=== PATIENT | male | born 1945 | race Hispanic/Latino ===

== ENCOUNTER 2017-03-18 07:57 | Observation (INO) | payer MEDICARE, OTHER ==
[2017-03-18 08:03] VITALS: BMI 27.3
[2017-03-18 08:45] LABS: ADD MANUAL DIFF? NO
[2017-03-18 08:50] LABS: BASO # 0.01 K/mm3 (0.0-2.0); BASO % 0.1 % (0.0-3.0); EOS # 0.4 (0.0-0.7); EOS % 4.2 % (1.5-5.0); GRAN # 6.38 (1.4-6.5); GRAN % 72.9 % (50.0-68.0); HEMATOCRIT 32.8 % (42.0-52.0); LYMPH % 11.4 % (22.0-35.0); MEAN CELL VOLUME 96.2 fL (80.0-105.0); MEAN CORPUSCULAR HGB CONC 33.2 g/dl (31.0-37.0); MEAN PLATELET VOLUME 10.3 fl (7.0-11.0); MONO % 11.4 % (1.0-6.0); PLATELET COUNT 251 10^3/uL (120.0-450.0); RED CELL DISTRIBUTION WIDTH 14.6 % (11.5-14.5); WHITE BLOOD COUNT 8.8 10^3/ul (4.5-11.0)
[2017-03-18 09:00] LABS: INR 1.06 (0.93-1.08)
[2017-03-18 09:05] LABS: ALB/GLOB RATIO 1.1 (1.1-1.8); BILIRUBIN,TOTAL 0.9 mg/dL (0.2-1.3); CALCIUM 9.8 mg/dL (8.4-10.5); MAGNESIUM 1.9 mg/dL (1.7-2.2); PHOSPHOROUS 3.7 mg/dL (2.5-4.5); POTASSIUM 3.2 mmol/L (3.6-5.0); TOTAL PROTEIN 6.6 g/dL (5.8-8.3)
[2017-03-18] MEDS ORDERED: Potassium Chloride 20 mEq ER Tab PO STA (09:14)
--- NOTE | 2017-03-18 09:14 | CT ---
PROCEDURE: CT HEAD WITHOUT CONTRAST. HISTORY: altered mental status COMPARISON: None available. TECHNIQUE: Axial computed tomography images were obtained through the head/brain without intravenous contrast. Radiation dose: Total exam DLP = 822 mGy-cm. This CT exam was performed using one or more of the following dose reduction techniques: Automated exposure control, adjustment of the mA and/or kV according to patient size, and/or use of iterative reconstruction technique. FINDINGS: HEMORRHAGE: No intracranial hemorrhage. BRAIN: No mass effect or edema. No atrophy or chronic microvascular ischemic changes. VENTRICLES: Unremarkable. No hydrocephalus. CALVARIUM: Unremarkable. PARANASAL SINUSES: Unremarkable as visualized. No significant inflammatory changes. MASTOID AIR CELLS: Unremarkable as visualized. No inflammatory changes. OTHER FINDINGS: None. IMPRESSION: Normal CT of the Head.
[2017-03-18 09:15] LABS: TROPONIN I 0.02 ng/mL
--- NOTE | 2017-03-18 09:26 | ED PDOC ---
Arrival/HPI - General Chief Complaint: Weakness/Neurological Deficit Time Seen by Provider: 03/18/17 08:06 Historian: Spouse EM Caveat: Acuity of Condition - History of Present Illness Narrative History of Present Illness (Text): 03/18/17 08:10 A 72 year old male, whose past medical history includes CHF, COPD, NSTEMI with stents, hyperlipidemia, hypertension, renal failure, chronic back pain and on CPAP, presents to the emergency department, accompanied by . Patient states the patient was started on new medication for his back pain on 03/14/17, which she believes may be the cause of the patient symptoms. She states last night the patient began to twitch through his lower extremities and body. She notes twitch is intermittent. reports this morning the patient was walking and suddenly lean over and held onto her as though he was weak and the twitching increased. Patient then had two episodes of vomiting, so they became concerned and decided to come to the emergency department for evaluation. denies any fever, cough, or other complaints at this time. PMD: Dr. Pacheco Time/Duration: Other (12-18 hours) Symptom Onset: Sudden Symptom Course: Intermittent Quality: Other Activities at Onset: Rest Context: Home Past Medical History - Provider Review Nursing Documentation Reviewed: Yes - Infectious Disease Hx of Infectious Diseases: None - Cardiac Hx Cardiac Disorders: Yes Hx Hypertension: Yes Hx Pacemaker: No - Pulmonary Hx Respiratory Disorders: Yes Hx Chronic Obstructive Pulmonary Disease (COPD): Yes Hx Sleep Apnea: Yes (uses cpap) - Neurological Hx Neurological Disorder: No Hx Paralysis: No - HEENT Hx HEENT Disorder: No - Renal Hx Renal Disorder: No - Endocrine/Metabolic Hx Endocrine Disorders: No - Hematological/Oncological Hx Blood Disorders: No Hx Blood Transfusions: No Hx Blood Transfusion Reaction: No - Integumentary Hx Dermatological Disorder: No - Musculoskeletal/Rheumatological Hx Musculoskeletal Disorders: Yes - Gastrointestinal Hx Gastrointestinal Disorders: No - Genitourinary/Gynecological Hx Genitourinary Disorders: No - Psychiatric Hx Psychophysiologic Disorder: No Hx Emotional Abuse: No Hx Physical Abuse: No Hx Substance Use: No - Surgical History Hx Cardiac Catheterization: Yes Hx Coronary Stent: Yes - Anesthesia Hx Anesthesia Reactions: No Hx Malignant Hyperthermia: No - Suicidal Assessment Feels Threatened In Home Enviroment: No Family/Social History Family/Social History: Unknown Family HX Smoking Status: Former Smoker Hx Alcohol Use: No Hx Substance Use: No Allergies/Home Meds Allergies/Adverse Reactions: Allergies ticlopidine HCl [From Ticlid] Allergy (Intermediate, Verified 03/18/17 08:06) RASH Home Medications: Home Meds Medication Instructions Recorded Confirmed ALPRAZolam [Xanax] 0.5 mg PO TID 07/03/15 03/18/17 Risperidone [Risperidone Odt 0.25 mg PO HS 07/03/15 03/18/17 0.25MG] Nebivolol [Bystolic] 5 mg PO DAILY 09/03/16 03/18/17 Furosemide [Lasix] 20 mg PO DAILY 09/05/16 03/18/17 Ticagrelor [Brilinta] 90 mg PO BID 09/05/16 03/18/17 Aspirin [Adult Low Dose Aspirin EC] 81 mg PO DAILY 09/19/16 03/18/17 Atorvastatin [Lipitor] 40 mg PO QPM 09/19/16 03/18/17 DULoxetine [Cymbalta] 60 mg PO DAILY 09/19/16 03/18/17 Pantoprazole Sodium [Protonix] 40 mg PO QAM 09/19/16 03/18/17 Docusate [Colace] 100 mg PO DAILY PRN 10/12/16 03/18/17 Albuterol Sulfate [Proair Hfa] 1 inh INH PRN PRN 03/18/17 03/18/17 Albuterol Sulfate [Proair 1 inh INH DAILY 03/18/17 03/18/17 Respiclick] Baclofen [Lioresal] 20 mg PO Q8 03/18/17 03/18/17 Cholecalciferol (Vitamin D3) 1 tab PO DAILY 03/18/17 03/18/17 [Vitamin D3] Modafinil [Provigil] 200 mg PO DAILY 03/18/17 03/18/17 Ranolazine [Ranexa] 500 mg PO BID 03/18/17 03/18/17 Review of Systems - Physician Review All systems were reviewed & negative as marked: Yes - Review of Systems Constitutional: Fatigue. absent: Fevers Respiratory: absent: Cough Gastrointestinal: Vomiting Musculoskeletal: Other (twitching) Physical Exam Vital Signs Reviewed: Yes Vital Signs Temp Pulse Resp BP Pulse Ox 03/18/17 11:42 68 17 123/66 100 03/18/17 08:00 97.7 F 67 18 152/86 H 100 Temperature: Afebrile Blood Pressure: Hypertensive Pulse: Regular Respiratory Rate: Normal Appearance: Positive for: Well-Appearing, Non-Toxic, Comfortable Pain Distress: None Mental Status: Positive for: other (Alert and oriented x 2; drowsy ( states this is not baseline for the patient)). No: Confused, Agitated, Lethargic, Comatose Finger Stick Blood Glucose: 122 - Systems Exam Head: Present: Atraumatic, Normocephalic Pupils: Present: PERRL Extroacular Muscles: Present: EOMI Conjunctiva: Present: Normal Mouth: Present: Moist Mucous Membranes Neck: Present: Normal Range of Motion Respiratory/Chest: Present: Clear to Auscultation, Good Air Exchange. No: Respiratory Distress, Accessory Muscle Use Cardiovascular: Present: Regular Rate and Rhythm, Normal S1, S2. No: Murmurs Abdomen: Present: Normal Bowel Sounds. No: Tenderness, Distention, Peritoneal Signs Back: Present: Normal Inspection Upper Extremity: Present: Normal Inspection. No: Cyanosis, Edema Lower Extremity: Present: Normal Inspection. No: Edema Neurological: Present: GCS=15, CN II-XII Intact, Speech Normal, Motor Func Grossly Intact, Normal Sensory Function Skin: Present: Warm, Dry, Normal Color. No: Rashes Psychiatric: Present: Alert, Other (drowsy). No: Oriented x 3 Medical Decision Making ED Course and Treatment: 03/18/17 08:10 Impression: A 72 year old male with alter mental status. Differential Diagnosis include but are not limited to: AMS secondary to medication reaction vs. electrolyte imbalance vs. intracranial hemorrhage vs. infection etiology Plan: -- EKG -- Head CT -- Chest X-ray -- Labs -- Urinalysis -- Reassess and disposition Prior Visits: Notes and results from previous visits were reviewed. The patient last presented to the emergency department on 09/19/16 for evaluation of fatigue and shortness of breath. Progress Notes: EKG: Ordered, reviewed, and independently interpreted the EKG. Rate : 65 BPM Rhythm : NSR Interpretation : No ST-segment elevations or depressions, no T-wave inversions, normal intervals. Comparison : No change from previous EKG for comparison. 03/18/17 09:14 Patient Potassium is 3.2, will give K-Dur. 03/18/17 09:[address]: Creator : Bossman Vaz MD COMPARISON: None available. FINDINGS: HEMORRHAGE: No intracranial hemorrhage. BRAIN: No mass effect or edema. No atrophy or chronic microvascular ischemic changes. VENTRICLES: Unremarkable. No hydrocephalus. CALVARIUM: Unremarkable. PARANASAL SINUSES: Unremarkable as visualized. No significant inflammatory changes. MASTOID AIR CELLS: Unremarkable as visualized. No inflammatory changes. OTHER FINDINGS: None. IMPRESSION: Normal CT of the Head. 03/18/17 10:34 Urinalysis reviewed and negative. Potassium replaced. CT Head negative. Case discussed with Dr. Pacheco, who is aware and agrees with the plan to place the patient in Med/Surg for observation for weakness and hypokalemia. I have discussed the results and plan with the patient's , who expresses understanding. Patient's given the opportunity to ask question, all questions were answered and there is agreement with the plan to be admitted to the hospital. 03/18/17 11:44 Chest X-ray: Creator : Bossman Vaz MD COMPARISON: None available. FINDINGS: LUNGS: Clear. PLEURA: No pneumothorax or pleural fluid seen. CARDIOVASCULAR: Normal. OSSEOUS STRUCTURES: No significant abnormalities. VISUALIZED UPPER ABDOMEN: Normal. OTHER FINDINGS: None. IMPRESSION: No active disease. - Lab Interpretations Lab Results: 03/18/17 08:40 03/18/17 08:40 Lab Results 03/18/17 08:40: Sodium 146, Potassium 3.2 L, Chloride 109 H, Carbon Dioxide 29, Anion Gap 11, BUN 19, Creatinine 1.5 H, Est GFR ( Amer) 56, Est GFR (Non- Af Amer) 46, Random Glucose 116 H, Calcium 9.8, Phosphorus 3.7, Magnesium 1.9, Total Bilirubin 0.9, AST 37, ALT 45, Alkaline Phosphatase 74, Lactate Dehydrogenase 284 L, Total Creatine Kinase 32 L, Troponin I 0.02 D, Total Protein 6.6, Albumin 3.5, Globulin 3.1, Albumin/Globulin Ratio 1.1 03/18/17 08:40: PT 11.5, INR 1.06, APTT 25.0 03/18/17 08:40: WBC 8.8, RBC 3.41 L, Hgb 10.9 L, Hct 32.8 L, MCV 96.2, MCH 32.0 , MCHC 33.2, RDW 14.6 H, Plt Count 251, MPV 10.3, Gran % 72.9 H, Lymph % (Auto) 11.4 L, [place] % (Auto) 11.4 H, Eos % (Auto) 4.2, Baso % (Auto) 0.1, Gran # 6.38, Lymph # 1.0 L, [place] # 1.0 H, Eos # 0.4, Baso # 0.01 I have reviewed the lab results: Yes - RAD Interpretation Radiology Orders: 03/18/17 08:19 HEAD W/O CONTRAST [CT] Stat 03/18/17 09:15 CXR [CHEST PORTABLE] [RAD] Stat - Medication Orders Current Medication Orders: Acetaminophen (Tylenol 325mg Tab) 650 mg PO Q4H PRN PRN Reason: Pain, Mild (1-3) Ondansetron HCl (Zofran Inj) 4 mg IVP Q4H PRN PRN Reason: Nausea/Vomiting Discontinued Medications Potassium Chloride (K-Dur 20 Meq Er Tab) 40 meq PO STAT STA Stop: 03/18/17 09:15 Last Admin: 03/18/17 09:33 Dose: 40 meq - Scribe Statement The provider has reviewed the documentation as recorded by the Leann Ariza Provider Joseibe Attestation: All medical record entries made by the Leann were at my direction and personally dictated by me. I have reviewed the chart and agree that the record accurately reflects my personal performance of the history, physical exam, medical decision making, and the department course for this patient. I have also personally directed, reviewed, and agree with the discharge instructions and disposition. Disposition/Present on Arrival - Present on Arrival Any Indicators Present on Arrival: No History of DVT/PE: No History of Uncontrolled Diabetes: No Urinary Catheter: No History of Decub. Ulcer: No History Surgical Site Infection Following: None - Disposition Have Diagnosis and Disposition been Completed?: Yes Diagnosis: Weakness, Hypokalemia Disposition: HOSPITALIZED Disposition Time: 10:34 Patient Plan: Observation Condition: FAIR
--- NOTE | 2017-03-18 11:42 | RAD ---
PROCEDURE: CHEST RADIOGRAPH, 1 VIEW HISTORY: altered mental status COMPARISON: None available. FINDINGS: LUNGS: Clear. PLEURA: No pneumothorax or pleural fluid seen. CARDIOVASCULAR: Normal. OSSEOUS STRUCTURES: No significant abnormalities. VISUALIZED UPPER ABDOMEN: Normal. OTHER FINDINGS: None. IMPRESSION: No active disease.
[2017-03-18 12:12] LABS: URINE BILIRUBIN NEGATIVE (NEGATIVE); URINE BLOOD NEGATIVE (NEGATIVE); URINE GLUCOSE (UA) NEGATIVE (NEGATIVE); URINE KETONE NEGATIVE (NEGATIVE); URINE LEUKOCYTE ESTERASE NEGATIVE Leu/uL (NEGATIVE); URINE PROTEIN TRACE mg/dL (<30 mg/dL); URINE UROBILINOGEN 0.2 E.U./dL (<1 E.U./dL)
[2017-03-18 12:13] LABS: URINE APPEARANCE CLEAR (CLEAR); URINE COLOR YELLOW (YELLOW)
[2017-03-18 12:22] LABS: URINE BACTERIA FEW (NEG); URINE EPITHELIAL CELLS 0 - 2 /hpf (0-5); URINE RBC 0 - 2 /hpf (0-2); URINE WBC 0 - 2 /hpf (0-6)
[2017-03-18 14:07] VITALS: RESP 18
[2017-03-18] MEDS ORDERED: Albuterol HFA 90 mcg/actuation (8 g) INH PRN ×2 (14:59→15:41)
[2017-03-18] MEDS ORDERED: Albuterol 0.083% Inhal Sol (2.5 mg/3 mL) UD IH PRN (17:09)
--- NOTE | 2017-03-18 17:24 | CON ---
DATE: 03/18/2017 CHIEF COMPLAINT: Altered mental status. HISTORY OF PRESENT ILLNESS: A 72-year-old man with history of COPD, congestive heart failure and non -STEMI with stents, hyperlipidemia, hypertension, renal failure, chronic back pain on Cymbalta, histo ry of fusion of the lumbar area, history of sleep apnea on CPAP, history of being on modafinil for fa tigue throughout the day. He came to the hospital because the noted that he was placed baclofen on 03/14/2017 and he started becoming more dizzy with tremulous activity of the extremities, but no s eizure-like activity noticed. Currently, he is in deep sleep, is slightly lethargic, but responsive localized noxious stimulus. He follows simple commands. CT head showed no acute intracranial abnorm alities. His electrolyte ____ his potassium 3.2, chloride 109, blood pressure is otherwise stable. PAST MEDICAL HISTORY: History of CHF, COPD N-STEMI with stents, hyperlipidemia, hypertension, chroni c back pain with chronic fusion in the lower lumbar area, history of renal failure, history of obstru ctive sleep apnea on CPAP, history of fatigue on modafinil. REVIEW OF SYSTEMS: A 14-point review of systems negative except that in the HPI. HOME MEDICATIONS: Reviewed via nurses reconciliation sheet. ALLERGIES: TICLOPIDINE. FAMILY HISTORY: Noncontributory. SOCIAL HISTORY: No illicit drug use, smoking, or ETOH abuse. PHYSICAL EXAMINATION: VITAL SIGNS: Temperature 97.7, pulse rate 68, blood pressure 123/66, respiratory rate 17, oxygen 100 % on room air. GENERAL: The patient is sitting up in bed in no acute distress. HEENT: Atraumatic, normocephalic. PERRLA. Extraocular muscles intact. NECK: Supple, no JVD, no adenopathy noted. LUNGS: Clear to auscultation. No adventitious sounds. HEART: S1, S2, normal rate and rhythm. No murmurs, rubs, or gallops. ABDOMEN: Soft, nontender, nondistended. Bowel sounds are present. EXTREMITIES: No clubbing, no cyanosis. Peripheral pulses 2+ bilaterally. NEUROLOGIC: The patient is alert, drowsy, no acute distress. Speech is fluent, without any errors. Cranial nerves II through XII are intact. MOTOR: Moves all extremities equally. Toes downgoing bilaterally. SENSORY: Withdraws to localized noxious stimulus. Light touch is intact. Proprioception is intact. DTRs are 2+ throughout and 1 at the knees and ankles. COORDINATION: [id number] intact. GAIT: Deferred for now. No tremulous activity noted. LABORATORIES: Sodium is 146, potassium 3.2, chloride 109, carbon dioxide 29, BUN of 119, creatinine 1.5, random glucose of 111. ASSESSMENT AND PLAN: This is a 72-year-old man with past medical history of congestive heart failure , chronic obstructive pulmonary disease, non-ST elevation myocardial infarction with stents, hyperlip idemia, hypertension, history of renal failure, history of chronic back pain with fusion of the lumbo sacral spine on Cymbalta and obstructive sleep apnea on CPAP. He came to the Emergency Department be cause he was becoming more lethargic after starting baclofen and having some generalized weakness and twitching, but no bowel or bladder incontinence, no history of seizures. Currently, there is no sei zure-like activity. He is slightly lethargic, but does take modafinil throughout the day to keep him stimulated and awake. I feel like his overall change in mental status is likely secondary to polyph armacy given that he was on baclofen and he is also on Cymbalta as it is in the morning as well as Xa nax. I recommend: 1. Avoid any sedating medications. 2. Stop baclofen completely and can make sure he takes his Cymbalta only at night at least 60 mg p.o . at bedtime, can reduce to 30 mg p.o. at bedtime if needed. 3. Continue with modafinil 200 mg p.o. daily during in the morning to keep him up during the day. 4. Monitor electrolytes and correct his metabolic derangements. 5. Continue with aspirin 81 mg and Lipitor 40 mg for stroke prevention. At this time, he is clinically stable. CT head is negative. Adjust his sedating medications. Thank you for this consult. Robert Sebastian MD cc: [phone] TT: 03/18/2017 17:24:06 Confirmation # [id number] Dictation # [id number] jn
[2017-03-18 17:28] LABS: ARTERIAL BLOOD GAS HCO3 24.7 mmol/L (21-28); ARTERIAL BLOOD GAS O2 CAPACITY 13.8 mL/dl (16-24); ARTERIAL BLOOD GAS O2 CONTENT 13.7 ML/dl (15-23); ARTERIAL BLOOD GAS PH 7.47 (7.35-7.45); ARTERIAL BLOOD HGB O2 SAT 95.7 % (95.0-98.0); CARBOXYHEMOGLOBIN 2.3 % (0.5-1.5); HHB 0.8 % (0-5); METHEMOGLOBIN 1.1 % (0.0-3.0)
[2017-03-18] MEDS: Dextrose 5%/0.45% NS 1,000 ML IV SCH (17:44)
--- NOTE | 2017-03-18 18:50 | CARD ---
APPROVED REPORT EKG Measurement Heart [id number] MI [id number] <Conclusion> Normal sinus rhythm Possible Left atrial enlargement Possible Anterior infarct, age undetermined Abnormal ECG
[2017-03-18] MEDS ORDERED: RISPERIDONE 0.25 MG PO SCH (22:00)
[2017-03-19] MEDS: Dextrose 5%/0.45% NS 1,000 ML IV SCH ×2 (05:17→09:43)
[2017-03-19 09:06] VITALS: BP 158/94; PULSE 72; TEMP 98.8; O2SAT 98
[2017-03-19] MEDS ORDERED: CHOLECALCIFEROL PO SCH (10:00)
[2017-03-19] MEDS ORDERED: Pantoprazole 40 mg EC Tab PO SCH (10:00)
[2017-03-19] MEDS ORDERED: Non Formulary Medication (Cholecalciferol (Vitamin D3) [Vitamin D3] 1 TAB) PO SCH (10:00)
[2017-03-19] MEDS ORDERED: NEBIVOLOL 5 MG PO SCH (10:00)
--- NOTE | 2017-03-19 13:24 | HP ---
The patient is a 72-year-old white male with a history of recent ____ myocardial infarction status po st stent, history of COPD, hypertension, CAD, severe neck and back pain. The patient was recently st arted on baclofen. He has been on antidepressants in the past and also Xanax in the past for his anx iety and depression. HE HAD A REACTION TO BACLOFEN AND BECAME LETHARGIC, CONFUSED AND DISORIENTED, c nabeel to the hospital. CT was negative. LABORATORY DATA: Unremarkable except for a slightly decrease in potassium, otherwise unremarkable. Over with hydration and time, his mental status cleared in the course of approximately 24 hours. He is stable. He is awake, alert, and oriented x 3. Most likely, he will be discharged home today. PHYSICAL EXAMINATION: GENERAL: Shows a well-developed, slightly ____. HEART: ____ murmurs. CHEST: Clear to auscultation and percussion. ABDOMEN: Obese, but benign. EXTREMITIES: Without cyanosis, clubbing, or edema. BACK: The patient has a lumbosacral scar from his recent laminectomy. He also has decreased range o f motion of the cervical spine and tenderness on palpation of the paracervical spinal muscles. NEUROLOGIC: The patient is alert and oriented x 3. Grossly intact. IMPRESSION: Medication reaction with lethargy, polypharmacy with Xanax and Cymbalta. PLAN: Is to allow the patient to be discharged home when he is completely clear, and to follow up as an outpatient. Aldair Pacheco MD cc: [id number] TT: 03/19/2017 11:58:17 stella
--- NOTE | 2017-03-19 20:15 | CON ---
DATE: 03/19/2017 The patient is in room 576, bed 2. REASON FOR CONSULTATION: Coronary artery disease, hypertension, hyperlipidemia, lethargic and confus ed. HISTORY OF PRESENT ILLNESS: The patient is a 72-year-old male who is known to have severe neck and b ack pain, has been on antidepressant and he was also started on baclofen after taking which he starte d becoming lethargic, confused, disoriented, also was dizzy and has tremulous activity of the extremi ties. The patient known case of coronary artery disease status post stents in LAD, RCA. The patient denies any chest pain, shortness of breath, or palpitation. PAST MEDICAL HISTORY: Positive for COPD, hypertension, hyperlipidemia, diabetes, chronic back and ch ronic cervical pain, sleep apnea on BiPAP, status post back surgery, resistance to Plavix with high P RU value, had been on Brilinta. Previous cardiac history: patient has history of stent insertion in the past, and patient on 08/30/2016 had an acute infarction with anterior wall myocardial infarction and underwent angioplasty, stent insertion of the LAD. It happened the patient stopped Plavix and t here was subacute closure of a stent in LAD because patient's Plavix was held for back surgery. Foll owing that the patient had staged PTCA with stenting of proximal RCA, distal RCA and continued to RPD A. On that catheterization the patient's ejection fraction 25%-30%. The patient had followup MUGA s can 11/30/2016 which showed ejection fraction of 50%. The patient was found to be resistant to the Pl avix with high PRU value, so he was ill put on Brilinta. PERSONAL HISTORY: Denies smoking. Denies a history of alcohol abuse. MEDICATIONS: The patient has been on Brilinta 90 mg twice daily, Cymbalta, Lipitor, Xanax and also p atient was put on recently baclofen. ALLERGIES: RESISTANT PLAVIX WITH HIGH PRU AND THE PATIENT ALSO ALLERGIC TO TICLOPIDINE. REVIEW OF SYSTEMS: All the systems were reviewed, positive mentioned in the history, others were neg ative. PHYSICAL EXAMINATION: VITAL SIGNS: Blood pressure 158/94, respirations 18. Yesterday, blood pressure 123/66, pulse 72, te mperature 98.8. HEENT: Head is normocephalic. Eyes: Pupils normal. Conjunctivae slightly pale. NECK: JVP low. Carotid equal. THORAX: AP diameter normal. LUNGS: Clear. CARDIOVASCULAR: S1, S2. ABDOMEN: Soft, nontender, no organomegaly. Bowel sounds normal. EXTREMITIES: No clubbing, no cyanosis. LABORATORY DATA: WBC 8.8, hemoglobin 10.9, hematocrit 32.8, platelet 251. Sodium 146, potassium on admission 3.2, BUN 19, creatinine 1.5, random sugar 116. Calcium, phosphorus, magnesium was normal, troponin 0.02. Total protein 6.6, albumin 3.5. CT of the head was normal. EKG showed normal sinus rhythm, possible left atrial enlargement, possible old anterior infarct. Chest x-ray: No active dis ease. DIAGNOSES: Lethargic, confused, disoriented, probably related to baclofen, coronary artery disease, history of multiple stents, diabetes mellitus, hypertension, hyperlipidemia, chronic obstructive pulm onary disease, sleep apnea on BiPAP, resistant to Plavix with high PRU value, chronic renal insuffici ency, anemia, severe neck and back pain, history of depression. PLAN: Baclofen has been stopped and will continue other medication including Brilinta as before. Po tassium was given in the Emergency Room, extra potassium was given to the patient. At present cardia c status is stable and will follow with you. Chilango Walton MD cc: [id number] TT: 03/19/2017 20:15:31 Confirmation # [id number] Dictation # [id number] stella
--- NOTE | 2017-04-06 11:30 | DS ---
The patient has a history of severe neck spasm, neck arthritis, anxiety disorder, COPD, CAD status po st stent. The patient admitted to the hospital complaining of shortness of breath, severe neck pain and change in mental status secondary to reaction to baclofen. The patient came in. He had a CT of the head which was negative. Chest x-ray was clear. The patient's symptoms resolved off of baclofen . He was seen in consultation by Dr. Walton, his prosthetic lab technician and by Dr. Sebastian for neurology. He w as cleared. He was able to be discharged home in improved condition. FINAL DISCHARGE DIAGNOSES: Medication reaction, anxiety disorder and cervical torticollis. Aldair Pacheco MD cc: [id number] TT: 04/06/2017 11:30:30 cn
== END 2017-03-19 11:55 | disposition home or self-care (01) ==
LOC: ED 07:57 → ERH 10:46 → 5RSO 12:39
PROVIDERS: ADMIT Internal Medicine; ATTEND Internal Medicine
DX: R41.82 Altered mental status, unspecified (principal); R41.0 Disorientation, unspecified; R53.83 Other fatigue; T43.215A Adverse effect of selective serotonin and norepinephrine reuptake inhibitors, initial encounter; T42.8X5A Adverse effect of antiparkinsonism drugs and other central muscle-tone depressants, initial encounter; G47.33 Obstructive sleep apnea (adult) (pediatric); I11.0 Hypertensive heart disease with heart failure; I50.9 Heart failure, unspecified; J44.9 Chronic obstructive pulmonary disease, unspecified; M54.9 Dorsalgia, unspecified; G89.29 Other chronic pain; E78.5 Hyperlipidemia, unspecified; E87.6 Hypokalemia; F32.9 Major depressive disorder, single episode, unspecified; F41.9 Anxiety disorder, unspecified; I25.10 Atherosclerotic heart disease of native coronary artery without angina pectoris; I25.2 Old myocardial infarction; Z95.5 Presence of coronary angioplasty implant and graft; Z98.1 Arthrodesis status; Z79.82 Long term (current) use of aspirin
CPT/HCPCS: 70450; 71010; 80053; 81001; 82550; 82803; 82948; 83615; 83735; 84100; 84484; 85025; 85610; 85730; 87040; 87086; 93005; 99285; G0378; J7042

== ENCOUNTER 2017-06-07 10:26 | Emergency (ER) | payer MEDICARE, OTHER ==
[2017-06-07 10:36] VITALS: BMI 29.4
[2017-06-07] MEDS ORDERED: Silver Nitrate Topical - Stick TOP ONE (11:00)
--- NOTE | 2017-06-07 11:39 | ED PDOC ---
Arrival/HPI - General Chief Complaint: Wound Check Time Seen by Provider: 06/07/17 10:46 Historian: Patient - History of Present Illness Narrative History of Present Illness (Text): 06/07/17 11:32 72 year old male, whose past medical history includes CHF, COPD, NSTEMI with stents, hyperlipidemia, hypertension, renal failure, chronic back pain and on CPAP, presents to the emergency department, accompanied by for bleeding to the R posterior arm. Patient states that he had scratched the back of his R arm last night, then woke up this AM and noticed blood all over his sheets, and still has bleeding upon arrival. States that he takes brilanta and baby ASA daily. Otherwise has no other complaints. Patient denies any fever, cough, CP, SOB, headache, dizziness, N/V/D, or any other complaints at this time. PMD: Dr. Pacheco Past Medical History - Provider Review Nursing Documentation Reviewed: Yes - Infectious Disease Hx of Infectious Diseases: None - Cardiac Hx Cardiac Disorders: Yes Hx [place]: Yes (6 stents) Hx Hypertension: Yes Hx Pacemaker: No - Pulmonary Hx Respiratory Disorders: Yes Hx Chronic Obstructive Pulmonary Disease (COPD): Yes Hx Sleep Apnea: Yes (uses cpap) - Neurological Hx Neurological Disorder: No - HEENT Hx HEENT Disorder: No - Renal Hx Renal Disorder: No - Endocrine/Metabolic Hx Endocrine Disorders: No - Hematological/Oncological Hx Blood Disorders: No - Integumentary Hx Dermatological Disorder: No - Musculoskeletal/Rheumatological Hx Falls: No - Gastrointestinal Hx Gastrointestinal Disorders: No - Genitourinary/Gynecological Hx Genitourinary Disorders: No - Psychiatric Hx Psychophysiologic Disorder: No Hx Substance Use: No - Surgical History Hx Cardiac Catheterization: Yes Hx Coronary Stent: Yes (x6) - Anesthesia Hx Anesthesia: Yes Hx Anesthesia Reactions: No Hx Malignant Hyperthermia: No - Suicidal Assessment Feels Threatened In Home Enviroment: No Family/Social History - Physician Review Nursing Documentation Reviewed: Yes Family/Social History: Unknown Family HX Smoking Status: Former Smoker Hx Alcohol Use: No Hx Substance Use: No Allergies/Home Meds Allergies/Adverse Reactions: Allergies ticlopidine HCl [From Ticlid] Allergy (Intermediate, Verified 06/07/17 10:35) RASH Home Medications: Home Meds Medication Instructions Recorded Confirmed ALPRAZolam [Xanax] 0.5 mg PO TID 07/03/15 06/07/17 Risperidone [Risperidone Odt 0.25 mg PO HS 07/03/15 06/07/17 0.25MG] Nebivolol [Bystolic] 5 mg PO DAILY 09/03/16 06/07/17 Furosemide [Lasix] 40 mg PO DAILY 09/05/16 06/07/17 Aspirin [Adult Low Dose Aspirin EC] 81 mg PO DAILY 09/19/16 06/07/17 Atorvastatin [Lipitor] 40 mg PO QPM 09/19/16 06/07/17 Pantoprazole Sodium [Protonix] 40 mg PO QAM 09/19/16 06/07/17 Docusate [Colace] 100 mg PO DAILY PRN 10/12/16 06/07/17 Albuterol Sulfate [Proair Hfa] 1 inh INH PRN PRN 03/18/17 06/07/17 Albuterol Sulfate [Proair 1 inh INH DAILY 03/18/17 06/07/17 Respiclick] Cholecalciferol (Vitamin D3) 1 tab PO DAILY 03/18/17 06/07/17 [Vitamin D3] Amoxicillin [Amoxil 250 mg Cap] 500 mg PO DAILY 06/07/17 06/07/17 Baclofen [Lioresal] 10 mg PO DAILY 06/07/17 06/07/17 DULoxetine [Cymbalta] 30 mg PO AC 06/07/17 06/07/17 DULoxetine [Cymbalta] 60 mg PO HS 06/07/17 06/07/17 Meclizine HCl [Meclizine HCl] 1 tab PO PRN PRN 06/07/17 06/07/17 Tiotropium [Spiriva] 1 cap IH DAILY 06/07/17 06/07/17 diltiaZEM [Cardizem] 180 mg PO DAILY 06/07/17 06/07/17 Review of Systems - Review of Systems Constitutional: Normal. absent: Fatigue, Weight Change, Fevers Respiratory: Normal, Wheezing (prior wheezing due to COPD). absent: SOB, Cough , Sputum Cardiovascular: Normal, Chest Pain (prior CP). absent: Palpitations, Edema Gastrointestinal: Normal. absent: Abdominal Pain, Diarrhea, Vomiting, Appetite Changes Musculoskeletal: Normal. absent: Arthralgias, Back Pain, Neck Pain Skin: Normal, Skin Lesions (multiple moles on his skin). absent: Rash, Pruritis Physical Exam Vital Signs Reviewed: Yes Vital Signs Temp Pulse Resp BP Pulse Ox 06/07/17 10:39 97.9 F 63 16 150/86 98 Temperature: Afebrile Blood Pressure: Hypertensive Pulse: Regular Respiratory Rate: Normal Appearance: Positive for: Well-Appearing, Non-Toxic, Comfortable Pain Distress: None Mental Status: Positive for: Alert and Oriented X 3 - Systems Exam Head: Present: Atraumatic, Normocephalic Mouth: Present: Moist Mucous Membranes Neck: Present: Normal Range of Motion Respiratory/Chest: Present: Clear to Auscultation, Good Air Exchange. No: Respiratory Distress, Accessory Muscle Use, Rales, Rhonchi Cardiovascular: Present: Regular Rate and Rhythm, Normal S1, S2. No: Murmurs Neurological: Present: GCS=15, CN II-XII Intact, Motor Func Grossly Intact, Normal Sensory Function Skin: Present: Warm, Dry, Normal Color, Other (small <0.5 cm abrasion with minimal bleeding noted). No: Rashes Medical Decision Making ED Course and Treatment: 06/07/17 11:41 72 year old male, whose past medical history includes CHF, COPD, NSTEMI with stents, hyperlipidemia, hypertension, renal failure, chronic back pain and on CPAP, presents to the emergency department, accompanied by for bleeding to the R posterior arm. Bleeding controlled with silver nitrate stick. On re-evaluation, no bleeding noted to the R arm. Clean dressing applied. Patient advised to keep wound dry and clean. Advised to follow up with primary care physician in 1-2 days without fail. Return to the emergency room at any time for any new or worsening symptoms. Patient states he fully agrees with and understands discharge instructions. States that he agrees with the plan and disposition. Verbalized and repeated discharge instructions and plan. I have given the patient opportunity to ask any additional questions. 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 Disposition/Present on Arrival - Present on Arrival Any Indicators Present on Arrival: No History of DVT/PE: No History of Uncontrolled Diabetes: No Urinary Catheter: No History of Decub. Ulcer: No History Surgical Site Infection Following: None - Disposition Have Diagnosis and Disposition been Completed?: Yes Diagnosis: Bleeding from wound Disposition: HOME/ ROUTINE Disposition Time: 11:30 Patient Plan: Discharge Condition: STABLE Discharge Instructions (ExitCare): Acute Wound Care (ED) Print Language: UZBEK Additional Instructions: Thank you for letting us take care of you today. You were treated for bleeding wound. The emergency medical care you received today was directed at your acute symptoms. It may take several days for your symptoms to resolve. Return to the Emergency Department if your symptoms worsen, do not improve, or if you have any other problems. Please contact your doctor in 2 days for re-evaluation and follow up. Bring any paperwork you were given at discharge with you along with any medications you are taking to your follow up visit. Our treatment cannot replace ongoing medical care by a primary care provider (PCP) outside of the emergency department. Thank you for allowing the [facility] team to be part of your care today. Referrals: Aldair Pacheco MD [Primary Care Provider] - Follow up with primary Forms: [facility] ([employer])
[2017-06-07 12:14] VITALS: BP 160/90; PULSE 64; RESP 18; TEMP 97.8; O2SAT 100
== END 2017-06-07 12:14 | disposition home or self-care (01) ==
LOC: ED 10:26
DX: R58 Hemorrhage, not elsewhere classified (principal)

== ENCOUNTER 2018-10-04 18:45 | Emergency (ER) | payer MEDICARE, OTHER ==
--- NOTE | 2018-10-04 18:57 | ED PDOC ---
Arrival/HPI - General Historian: Spouse, EMS - Critical Care Critical Care Minutes: Other (15 minutes) - History of Present Illness Narrative History of Present Illness (Text): 10/04/18 18:57 73 year old male, whose past medical history includes CAD and 8 stents, presenting to the emergency department for cardiac arrest. PEr patient's , patient was having chest pain all day and had taken aspirin/ chest massages with some relief. Patient's states she last spoke to patient at approximately ~17:00around 1 hour before finding him face down and unresponsive. 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 Upon arrival pt w/ BLS, pt non responsive, non-intubated with active CPR ongoing. PMD: Dr. Pacheco Weld Engineer: Dr. Cazares Time/Duration: 1 hour Symptom Onset: Sudden Symptom Course: Unchanged Context: Home Past Medical History - Provider Review Nursing Documentation Reviewed: Yes - Infectious Disease Hx of Infectious Diseases: None - Cardiac Hx Hypertension: Yes - Pulmonary Hx Chronic Obstructive Pulmonary Disease (COPD): Yes - Neurological Hx Neurological Disorder: No - HEENT Hx HEENT Disorder: No - Renal Hx Renal Disorder: No - Endocrine/Metabolic Hx Endocrine Disorders: No - Hematological/Oncological Hx Blood Disorders: No - Integumentary Hx Dermatological Disorder: No - Musculoskeletal/Rheumatological Hx Falls: No - Gastrointestinal Hx Gastrointestinal Disorders: No - Genitourinary/Gynecological Hx Genitourinary Disorders: No - Psychiatric Hx Psychophysiologic Disorder: No Hx Substance Use: No - Surgical History Hx Cardiac Catheterization: Yes Hx Coronary Stent: Yes (x6) - Anesthesia Hx Anesthesia: Yes Hx Anesthesia Reactions: No Hx Malignant Hyperthermia: No - Suicidal Assessment Feels Threatened In Home Enviroment: No Family/Social History - Physician Review Nursing Documentation Reviewed: Yes Family/Social History: No Known Family HX Smoking Status: Former Smoker Hx Alcohol Use: No Hx Substance Use: No Allergies/Home Meds Allergies/Adverse Reactions: Allergies ticlopidine HCl [From Ticlid] Allergy (Intermediate, Verified 06/07/17 10:35) RASH Home Medications: Home Meds Medication Instructions Recorded Confirmed RX: ALPRAZolam [Xanax] 0.5 mg PO TID 07/03/15 02/28/18 RX: Risperidone [Risperidone Odt 0.25 mg PO HS 07/03/15 02/28/18 0.25MG] RX: Nebivolol [Bystolic] 5 mg PO DAILY 09/03/16 02/28/18 RX: Furosemide [Lasix] 40 mg PO DAILY 09/05/16 02/28/18 RX: Aspirin [Adult Low Dose 81 mg PO DAILY 09/19/16 02/28/18 Aspirin EC] RX: Atorvastatin [Lipitor] 40 mg PO QPM 09/19/16 02/28/18 RX: Pantoprazole Sodium [Protonix] 40 mg PO QAM 09/19/16 02/28/18 RX: Docusate [Colace] 100 mg PO DAILY PRN 10/12/16 02/28/18 RX: Albuterol Sulfate [Proair Hfa] 1 inh INH PRN PRN 03/18/17 02/28/18 RX: Albuterol Sulfate [Proair 1 inh INH DAILY 03/18/17 02/28/18 Respiclick] RX: Cholecalciferol (Vitamin D3) 1 tab PO DAILY 03/18/17 02/28/18 [Vitamin D3] DULoxetine [Cymbalta] 30 mg PO AC 06/07/17 02/28/18 DULoxetine [Cymbalta] 60 mg PO HS 06/07/17 02/28/18 Meclizine HCl 1 tab PO PRN PRN 06/07/17 02/28/18 RX: Amoxicillin [Amoxil 250 mg Cap] 500 mg PO DAILY 06/07/17 02/28/18 RX: Baclofen [Lioresal] 10 mg PO DAILY 06/07/17 02/28/18 Tiotropium [Spiriva] 1 cap IH DAILY 06/07/17 02/28/18 diltiaZEM [Cardizem] 180 mg PO DAILY 06/07/17 02/28/18 Review of Systems - Review of Systems Systems not reviewed;Unavailable: Acuity of Condition Physical Exam Pulse: Pulseless Respiratory Rate: Apneic Appearance: Positive for: Other (non responsive) - Systems Exam Head: Present: Atraumatic, Normocephalic Pupils: Present: Non-Reactive, Other (5mm and fixed bilaterally) Mouth: Present: Dry Pharnyx: No: ERYTHEMA Nose (Internal): Present: Normal Inspection Respiratory/Chest: Present: Other (no spontaneous respirations) Cardiovascular: Present: Other (pulseless) Upper Extremity: Present: Other (+left forearm tattoo noted) Neurological: Present: Other (no spontaneous movements) Medical Decision Making ED Course and Treatment: Impression: 73 year old male presenting to the emergency room for cardiac arrest. Likely 1hr downtime. No epi given in the field and pt non-intubated. Likely cardiac source of CP given pts cardiac hx and complaint of CP all day. Progress Notes: 10/04/18 18:44 Non-intubated, BVM ongoing Pulseless. CPR ongong Epi Given 10/04/18 18:48 Epi Given. BVM, CPR ongoing 10/04/18 18:49 Intubated w/ Glidescope 23@ the lip. Confirmation via direct visualization, auscultation and good color change 10/04/18 18:52 Epi given. BVM, CPR ongoing 10/04/18 18:54 Rhythm check, pulse check: Asystole on monitor, pulseless Bedside US: No cardiac wall motion Time of called 10/04/18 18:58 Family notified and consoled over pt 10/04/18 1930 Appreciate consult w/ Colleen: Dr. Pacheco RECEIVING CLERK: Shared pt : Per RECEIVING CLERK Dr. Pacheco not available at this time but will pass on message to PMD. - Scribe Statement The provider has reviewed the documentation as recorded by the Scribtenzin Lemus All medical record entries made by the Scribe were at my direction and personally dictated by me. I have reviewed the chart and agree that the record accurately reflects my personal performance of the history, physical exam, medical decision making, and the department course for this patient. I have also personally directed, reviewed, and agree with the discharge instructions and disposition. Disposition/Present on Arrival - Present on Arrival Any Indicators Present on Arrival: No History of DVT/PE: No History of Uncontrolled Diabetes: No Urinary Catheter: No History Surgical Site Infection Following: None - Disposition Have Diagnosis and Disposition been Completed?: Yes Diagnosis: Disposition Time: 18:54 Patient Problems: Current Active Problems Problem Status Onset Acute Condition:
[2018-10-04 19:05] VITALS: BMI 27.3
[2018-10-04 19:26] VITALS: BP 119/44
== END 2018-10-04 21:53 ==
LOC: ED 18:45
DX: I46.9 Cardiac arrest, cause unspecified (principal); I25.10 Atherosclerotic heart disease of native coronary artery without angina pectoris; I10 Essential (primary) hypertension; J44.9 Chronic obstructive pulmonary disease, unspecified; Z95.5 Presence of coronary angioplasty implant and graft; Z87.891 Personal history of nicotine dependence